=== PATIENT | male | born 2000 | race Caucasian/White ===

== ENCOUNTER 2021-11-14 00:41 | Emergency (ER) | payer OTHER ==
[~2021-11-14] VITALS: Ht 193 cm; Wt 170.5 kg
[2021-11-14 00:55] VITALS: BP 159/86
--- NOTE | 2021-11-14 00:55 | PHYS DOC ---
General Adult EDM: Chief Complaint: SHORTNESS OF BREATH HPI: HPI: Patient is a 21 year old male here with wheezing. Symptoms began shortly prior to arrival. 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 He has been out of his albuterol inhaler for some time, he has been using a Primatene Mist inhaler in its place. He has known asthma. He has not had a significant exacerbation in quite some time. He reports that symptoms began rather abruptly. He denies any cough, hemoptysis, fevers or chills, denies chest pain. Denies lower extremity pain or swelling. Denies syncope, dizziness, diaphoresis. Review of Systems: Review of Systems: Constitutional: Denies fever or chills. [] HENT: Denies nasal congestion or sore throat. [] Respiratory: Cough with bronchospasm, no sputum production, no hemoptysis, dyspnea and wheezing. Cardiovascular: Denies chest pain or edema. [] GI: Denies abdominal pain, nausea, vomiting Musculoskeletal: Denies back pain or joint pain. [] Neurologic: Denies headache, focal weakness or sensory changes. [] Psychiatric: Denies depression or anxiety. [] Heart Score: C/O Chest Pain: No Risk Factors: Risk Factors: DM, Current or recent (<one month) smoker, HTN, HLP, family history of CAD, obesity. Risk Scores: Score 0 - 3: 2.5% MACE over next 6 weeks - Discharge Home Score 4 - 6: 20.3% MACE over next 6 weeks - Admit for Clinical Observation Score 7 - 10: 72.7% MACE over next 6 weeks - Early Invasive Strategies Physical Exam: PE: Constitutional: Well developed, well nourished, no acute distress, non-toxic appearance. [] HENT: Normocephalic, atraumatic Eyes: Conjunctival normal, sclera clear Neck: Normal range of motion, no tenderness, supple, no stridor. Trachea is midline, no JVD Cardiovascular:Heart rate regular rhythm, warm and well-perfused, +2 radial pulses bilateral Lungs & Thorax: Inspiratory and expiratory wheezing bilaterally. No stridor. Mild tachypnea. Speaks in full and clear sentences. No retractions. No cyanosis. Skin: Warm, dry, no erythema, no rash. [] Back: No tenderness, no CVA tenderness. [] Extremities: No tenderness, no cyanosis, no clubbing, ROM intact, no edema. No calf tenderness. Neurologic: Alert and oriented X 3, normal motor function, normal sensory function, no focal deficits noted. [] Psychologic: Affect normal, judgement normal, mood normal. [] EKG: EKG: [] Radiology/Procedures: Radiology/Procedures: [] Course & Med Decision Making: Course & Med Decision Making The patient is given p.o. prednisone and a DuoNeb. He reports feeling much better. He manifests no evidence of distress. Repeat lung exam is clear. No evidence of hypoxia. I discussed the findings, differential diagnosis and plan of care with the patient. I told him to stop vaping, and if he can minimize his secondhand smoke exposure, this would also be helpful. I told him to stop using the Primatene Mist inhaler immediately, as this is not appropriate for true bronchospasm and asthma, and may precipitate worsening symptoms. He verbalizes understanding of this. I prescribed albuterol MDI inhaler for him, with refills. I told him to follow-up with a primary care physician, and I recommend he see outpatient pulmonary services as well. Return precautions are given. He feels comfortable with the plan of care, verbalized understanding of instructions given. Vonnie Disclaimer: Vonnie Disclaimer: This electronic medical record was generated, in whole or in part, using a voice recognition dictation system. Departure Departure Impression: Primary Impression: Asthma exacerbation Disposition: HOME / SELF CARE / HOMELESS Condition: GOOD Referrals: EVA DO MD Patient Instructions: Asthma Prevention-Brief, Asthma, Acute Bronchospasm, Asthma, Adult Additional Instructions: The prescribed medication as directed. Return to the ER for refractory wheezing, chest pain, fever, coughing up blood or any other concerns. Please avoid smoke as much as possible, avoid vaping. Follow-up with your primary care physician. You are being given information to follow-up with pulmonary services here as well Scripts Albuterol Sulfate (PROAIR HFA INHALER) 8.5 Gm Hfa.aer.ad 2 PUFF IH PRN Q4-6HRS PRN for wheezing for 4 Days, #1 INHALER 0 Refills Prov: MATTHEW FELICIANO DO 11/14/21 MATTHEW FELICIANO DO Nov 14, 2021 00:55
[2021-11-14] MEDS ORDERED: IPRATRPIUM/ALBUTEROL 0.5/2.5MG 3 ML NEBU. NEB ONE (01:00)
[2021-11-14] MEDS ORDERED: predniSONE 10 MG TABLET PO ONE (01:00)
[2021-11-14] MEDS ORDERED: IPRATRPIUM/ALBUTEROL 0.5/2.5MG 3 ML NEBU. ONE (01:14)
[2021-11-14] MEDS ORDERED: ALBU2.5V8 IH (02:24)
== END 2021-11-14 02:35 | disposition home or self-care (01) ==
LOC: ER 00:41
DX: J45.901 Unspecified asthma with (acute) exacerbation (principal)
CPT/HCPCS: 94640; 99285; J7512; 99283